=== PATIENT | male | born 1940 | race Caucasian/White ===

== ENCOUNTER 2017-01-10 17:00 | Observation (INO) | payer MEDICARE ==
[~2017-01-10 17:00] MED LIST: ALDACTONE 25MG25 MG PO; DOXEPIN HCL10 MG PO; ELIQUIS5 MG PO; FOSAMAX70 MG PO; IMDUR ER TAB 6060 MG PO; LASIX20 MG PO; LEVAQUIN500 MG PO; LISINOPRIL2.5 MG PO; LO-DOSE ASPIRIN81 MG PO; METOPROLOL SUCC50 MG PO; SPIRIVA RESPIMAT4 GM INH; SPIRIVA18 MCG INH; SPIRONOLACTONE25 MG PO; SYMBICORT 16010.2 GM INH; TYLENOL W/CODEIN1 E1 PO; VENTOLIN HFA8 GM INH; VITAMIN D2000 UNI1 PO; ZANTAC150 MG PO; ZOCOR20 MG PO
[2017-01-10 18:48] LABS: HEMOGLOBIN 16.6 gm/dl (14.0-17.5); RED BLOOD COUNT 5.68 M/UL (4.20-5.50); WHITE BLOOD COUNT 20.2 K/UL (4.5-11.0)
[2017-01-10 19:01] LABS: BUN/CREATININE RATIO 14 (0-10)
[2017-01-11 07:24] LABS: HEMOGLOBIN 16.5 gm/dl (14.0-17.5); RED BLOOD COUNT 5.86 M/UL (4.20-5.50); WHITE BLOOD COUNT 17.8 K/UL (4.5-11.0)
[2017-01-11 07:33] LABS: BUN/CREATININE RATIO 16 (0-10)
[2017-01-12] MEDS ORDERED: LEVAQUIN500 MG PO (16:34)
[2017-01-12] MEDS ORDERED: MEDROL DOSEPAK 24 MG PO (16:35)
[2017-05-01] MEDS ORDERED: ZOLOFT25 MG PO (00:38)
[2017-05-01] MEDS ORDERED: SYMBICORT 80-10.2 GM INH (00:44)
[2017-05-01] MEDS ORDERED: CORDARONE 200M200 MG PO (00:47)
[2017-05-01] MEDS ORDERED: HYDROXYZINE HCL10 MG PO (00:48)
== END 2017-01-12 17:12 | disposition home or self-care (01) ==
LOC: ER1 17:00 → ZEROF 22:30 → MED SURG 4 22:30
PROVIDERS: ADMIT Internal Medicine
DX: J96.21 Acute and chronic respiratory failure with hypoxia (principal); I25.10 Atherosclerotic heart disease of native coronary artery without angina pectoris; I48.0 Paroxysmal atrial fibrillation; I11.0 Hypertensive heart disease with heart failure; I50.22 Chronic systolic (congestive) heart failure; E78.5 Hyperlipidemia, unspecified; Z86.73 Personal history of transient ischemic attack (TIA), and cerebral infarction without residual deficits; Z87.891 Personal history of nicotine dependence; Z79.01 Long term (current) use of anticoagulants; Z79.82 Long term (current) use of aspirin; Z79.899 Other long term (current) drug therapy; Z95.810 Presence of automatic (implantable) cardiac defibrillator
CPT/HCPCS: 36415; 36600; 71010; 80048; 80053; 82550; 82553; 82803; 83880; 84484; 85025; 87040; 93005; 94640; 94664; 96374; 96375; 96376; 99285; G0378; J1940; J1956; J2930

== ENCOUNTER → 2017-01-22 | Outpatient (CLI) | payer MEDICARE ==
[~2017-01-22] MED LIST changes: +CORDARONE 200M200 MG PO; +HYDROXYZINE HCL10 MG PO; +MEDROL DOSEPAK 24 MG PO; +SYMBICORT 80-10.2 GM INH; +ZOLOFT25 MG PO
[2017-01-22 10:33] LABS: BUN/CREATININE RATIO 27 (0-10)
== END ==
LOC: LAB 09:16
PROVIDERS: Internal Medicine Cardiovascular Disease
DX: I50.9 Heart failure, unspecified (principal); R06.02 Shortness of breath
CPT/HCPCS: 36415; 80048; 83880